=== PATIENT | male | born 1990 | race African-American/Black ===

== ENCOUNTER 2024-10-03 11:11 | Emergency (ER) | payer OTHER ==
[~2024-10-03] VITALS: Wt 97.5 kg
[2024-10-03] MEDS ORDERED: AMOX-CLAV 875-1 EACH PO (13:10)
[2024-10-03] MEDS ORDERED: Amoxicillin/Clavulanate Pota 875 MG TAB PO ONE (13:15)
== END 2024-10-03 13:25 | disposition home or self-care (01) ==
LOC: ED 11:11
DX: J02.9 Acute pharyngitis, unspecified (principal); Z20.822 Contact with and (suspected) exposure to COVID-19